=== PATIENT | female | born 1950 | race Two or more races ===

== ENCOUNTER 2024-11-24 07:57 | Emergency (ER) | payer MEDICARE, SELFPAY ==
[2024-11-24 08:14] VITALS: BP 149/84; PULSE 70; RESP 18; TEMP 37; O2SAT 97; BMI 27.3
--- NOTE | 2024-11-24 08:18 | XR_ITS ---
Examination: CT brain head without contrast. 2-D sagittal coronal reconstructions Date and time of exam:November 24, 2024 0831 hours INDICATIONS: Sudden onset head pain beginning 3 days ago CTDI: vol (mGy):49.5 DLP: (mGycm):915 Technique: Multiple CT axial sections of the brain have been obtained, 5 mm slice thickness. Contrast has not been administered. 2-D sagittal, coronal reconstructions have been obtained Low dose protocols were performed. One or more of the following dose reduction techniques were used; automated exposure control, adjustment of the mA and/or KV according to patient size, use of iterative reconstruction technique. Findings: No significant ventricular enlargement. Intra-axial or extra-axial hemorrhage density is not seen. No mass effect or midline shift Basal cisterns are not remarkable. Fourth ventricle is midline. Cranial vault intact. Impression: Negative for acute hemorrhage, mass effect or midline shift If signs and symptoms persist, consider elective brain MRI follow-up
--- NOTE | 2024-11-24 08:18 | XR_ITS ---
Examination: CT cervical spine without contrast 2-D sagittal reconstructions 2-D coronal reconstructions 3-D reconstructions. Exam date and time:12/25/2024 0831 hours INDICATIONS: Sudden onset neck pain beginning 3 days ago CTDI:vol (mGy) 8.2 DLP: (mGycm) 151 Technique: Multiple 2 mm axial sections of the cervical spine have been obtained. The coronal and sagittal reconstructions have been obtained. 3-D reconstructions have been obtained. Low dose protocols were performed. One or more of the following dose reduction techniques were used; automated exposure control, adjustment of the mA and/or KV according to patient size, use of iterative reconstruction technique. Findings: Axial sections demonstrate intact base of the skull. C1 exhibit satisfactory relationship to the odontoid. No acute cervical vertebral body fracture seen. Alignment posterior spinous processes satisfactory. Impression: No acute cervical fracture. Consider elective MRI cervical spine without contrast follow-up
[2024-11-24] MEDS: ACETAMINOPHEN 500 MG TABLET 1000 MG PO (08:26)
[2024-11-24] MEDS: DIAZEPAM 5 MG TABLET PO (08:42)
--- NOTE | 2024-11-24 10:52 | EDNOTE_ITS ---
<Statement entered by Jasmina Rai MD - 11/25/24 16:12> As co-signing physician, I was present and available for consult prn. I concur with the plan and care as documented by the midlevel provider. ED Neck Injury Pain RME/HPI General Chief Complaint: Neck Pain/Injury Stated Complaint: NECK PAIN RAD TO SHOULDERS/HEAD Time Seen by Provider: 11/24/24 08:14 Arrival date/time: 11/24/24 07:57 74-year-old female presents to the emergency department today complains of head and neck pain upper back and shoulder pain patient reports her pain is worse with movement of her neck and worse with palpation Limitations: no limitations Related Data Home Medications ?Medication ?Instructions ?Recorded ?Confirmed aspirin 81 mg tablet,delayed 81 mg PO QDAY ##0 5 05/24/18 release (Aspir-) enalapril maleate 20 mg tablet 20 mg PO BID #0 tabs 05/24/18 (Vasotec) glipizide 10 mg tablet 10 mg PO BIDAC #0 tabs 11/1005/24/18 hydrochlorothiazide 25 mg tablet 25 mg PO QAM #0 tabs 11/10/14 05/24/18 carvedilol 6.25 mg tablet (Coreg) 6.25 mg PO BID #0 ta bs 07/23/16 05/24/18 metformin 1,000 mg tablet 1,000 mg PO BID #0 tabs 11/0 12/0305/24/18 (Glucophage) sitagliptin phosphate 100 mg 100 mg PO QDAY #0 tabs 05/24/18 tablet (Januvia) Previous Rx's ?Medication ?Instructions ?Recorded cyclobenzaprine 10 mg tablet 10 mg PO TID PRN muscle s pasm 10 11/24/24 days #30 tab-caps hydrocodone 5 mg-acetaminophen 325 1 tab PO BID PRN pa in #10 tabs 11/24/24 mg tablet ibuprofen 600 mg tablet 600 mg PO Q6H #30 tabs 11/24 Allergies Allergy/AdvReac Type Severity Reaction Status Date / Time No Known Allergies Allergy Verified 05/24/18 06:17 Review of Systems Review of Systems Systems Reviewed: All systems reviewed, normal except as documented Constitutional Constitutional: Reports system reviewed and no additional complaints, except as documented, Denies fever(s) and Denies headache(s) Eyes Eyes: Reports system reviewed and no additional complaints, except as documented and Denies blurry vision ENT Ears, Nose, Mouth, and Throat: Reports system reviewed and no additional complaints, except as documented, Denies headache(s), Denies nasal congestion, Denies nasal discharge and Reports neck pain Cardiovascular Cardiovascular: Reports system reviewed and no additional complaints, except as documented, Denies chest pain and Denies dyspnea Respiratory Respiratory: Reports system reviewed and no additional complaints, except as documented, Denies chest congestion, Denies cough and Denies dyspnea Gastrointestinal Gastrointestinal: Reports system reviewed and no additional complaints, except as documented and Denies abdominal pain Musculoskeletal Musculoskeletal: Reports system reviewed and no additional complaints, except as documented, Denies deformity, Reports neck pain and Reports other (Bilateral shoulder pain paraspinal tenderness) Integumentary/Breasts Skin/Breast: Reports system reviewed and no additional complaints, except as documented and Denies rash Neurologic Neurologic: Reports system reviewed and no additional complaints, except as documented, Reports as per HPI and Denies headache(s) Past Medical History Past Medical History NEUROLOGIC: Negative Neurological Disorders or Seizures CARDIAC: Positive Cardiac Disorders, Hypercholesterolemia and Hypertension; Negative Congestive Heart Failure RESPIRATORY: Negative Chronic Obstructive Pulmonary Disease (COPD) GASTROINTESTINAL: Negative Gastrointestinal Disorders GENITOURINARY: Negative Genitourinary Disorders or Renal Disease MUSCULOSKELETAL: Negative Musculoskeletal Disorders ENT: Positive Cataracts (OS WITH IOL) ENDOCRINE: Positive Endocrine Disorders and Diabetes Mellitus Type 2; Negative Diabetes Mellitus Type 1 HEMATOLOGIC: Negative Blood Disorders PSYCHO/SOCIAL: Positive Anxiety OTHER HISTORY: Negative Autoimmune Disease or Anesthesia Reactions Surgical History SURGICAL: Positive Eye Surgery (BILAT PTERYGIUM); Negative Abdominal Surgery, Nephrectomy, Joint Replacement, Neurologic Surgery or Mastectomy Social History SMOKING STATUS: Never smoker ED Exam General Limitations: Present no limitations General appearance: Present alert and in no apparent distress Head Head exam: Present atraumatic, normocephalic and normal inspection Eye Eye exam: Present normal appearance, PERRL and EOMI; Absent conjunctival injection ENT ENT exam: Present normal exam, normal oropharynx and mucous membranes moist Neck Neck exam: Present normal inspection, full ROM and trachea midline Chest Chest inspection: Present normal inspection and symmetric chest wall rise Respiratory Respiratory exam: Present normal lung sounds bilaterally; Absent respiratory distress Cardiovascular Cardiovascular exam: Present regular rate, normal rhythm and normal heart sounds; Absent bradycardia or tachycardia Abdominal Exam Abdominal exam: Present soft and normal bowel sounds; Absent distention, tenderness, guarding, rebound or rigidity Extremities Exam Extremities exam: Present normal inspection and full ROM Back Exam Back exam: Present normal inspection, full ROM and tenderness Back 1 view image: 2 1. Neck pain muscle pain Neurological Exam Neurological exam: Present alert, oriented X3, CN II-XII intact, normal gait and reflexes normal; Absent motor sensory deficit Psychiatric Psychiatric exam: Present normal affect and normal mood Skin Skin exam: Present warm, dry, intact and normal color Course Quality Measures none Orders Category Date Time Status CT cervical spine wo con Stat Exams 11/24/24 08:[address] head/brain wo con Stat Exams 11/24/24 08:18 Completed Acetaminophen Tab [Tylenol ES Tab] Med 11/24/24 08:18 Discontinued 1,000 mg PO X1 ONE Diazepam [Valium] Med 11/24/24 08:18 Discontinued 5 mg PO X1 ONE Ketorolac Inj [Toradol Inj] Med 11/24/24 10:55 Discontinued 30 mg IM X1 ONE Vital Signs Vital signs: Vital Signs Temperature 98.6 F 11/24/24 08:14 Pulse Rate 70 11/24/24 08:14 Respiratory Rate 18 11/24/24 08:14 Blood Pressure 149/84 H 11/24/24 08:14 Pulse Oximetry (%) 97 11/24/24 08:14 Oxygen Delivery Method Room Air 11/24/24 08:14 O2 saturation 97% room air within normal limits Neck Pain MDM Narrative MDM Narrative:: 74-year-old female presents to the emergency department today complains of head and neck pain upper back and shoulder pain patient reports her pain is worse with movement of her neck and worse with palpation Patient reports no recent injuries patient ports no chest pain or shortness of breath no headache dizziness weakness Symptoms are highly consistent with muscle pain Imaging of the cervical spine as well as CT of the head obtained no acute emergent findings noted Patient medicated here which did improve her symptoms but did not completely relieve them Patient will be treated with course of pain medication and muscle relaxers Patient data External records reviewed:: [facility] previous records Clinical information provided by:: patient Social determinants that could affect healthcare access:: none Patient has the following chronic illnesses:: See history How is presenting disease/condition affected by chronic disease/condition?: u neffected by Evaluation data The following diagnostics were reviewed and interpreted by me:: radiology exam(s) Lab and/or radiology exams considered but not ordered:: Radiology obtain Interpretation Summary: Reviewed by me Medications / Prescriptions Medications or Prescriptions considered but not ordered:: Given Medication administrations:: Medication Administration History Discontinued Medications Acetaminophen (Acetaminophen 500 Mg Tablet) 1,000 mg PO X1 ONE Stop: 11/24/24 08:19 Last Admin: 11/24/24 08:26 Dose: 1,000 mg Documented By: NUBIA Diazepam (Diazepam 5 Mg Tablet) 5 mg PO X1 ONE Stop: 11/24/24 08:19 Last Admin: 11/24/24 08:42 Dose: 5 mg Documented By: NUBIA Ketorolac Tromethamine (Ketorolac Inj 30 Mg/Ml Vial) 30 mg IM X1 ONE Stop: 11/24/24 10:56 Last Admin: 11/24/24 11:19 Dose: 30 mg Documented By: AMY Comments: SCANNER NOT WORKING Given Consultations Consultation(s) initiated? (list below): No Diagnosis Neck Differential Diagnosis: disc disorder of cervical region, fracture of cervical spine without lesion of spinal cord and strain of neck muscle Most likely diagnosis given after review of the tests above:: Neck pain, muscle spasm Admission Indicated Admission indicated?: not indicated Admission Request Was there a request for admission?: No Disposition Plan Disposition Plan: Discharge Discharge Attestation Discharge Attestation: The patient and all family members were given an opportunity to ask questions and understood the discharge instructions. Discharge instructions specifically effects, indications for sooner follow up or return to the emergency department, and the expected course of current diagnosis. Patient condition: Stable Discharge Plan Plan Patient Disposition: HOME (Self Care) Disposition Comment: Stable Prescriptions/Referrals Prescriptions/Med Rec: New cyclobenzaprine 10 mg tablet 10 mg PO TID PRN (Reason: muscle spasm) 10 Days Qty: 30 0RF hydrocodone-acetaminophen 5-325 mg tablet 1 tab PO BID MDD 10 PRN (Reason: pain) Qty: 10 0RF ibuprofen 600 mg tablet 600 mg PO Q6H Qty: 30 0RF No Action enalapril maleate [Vasotec] 20 MG tablet 20 mg PO BID Qty: 0 glipizide 10 MG tablet 10 mg PO BIDAC Qty: 0 aspirin [Aspir-81] 81 mg Tablet,Delayed Release (Dr/Ec) 81 mg PO QDAY Qty: 0 hydrochlorothiazide 25 MG tablet 25 mg PO QAM Qty: 0 carvedilol [Coreg] 6.25 MG tablet 6.25 mg PO BID Qty: 0 metformin [Glucophage] 1,000 MG tablet 1,000 mg PO BID Qty: 0 sitagliptin phosphate [Januvia] 100 MG tablet 100 mg PO QDAY Qty: 0 Referrals: No Primary/Family,Physician [Primary Care Provider] - 11/27/24 Problem List Clinical Impression: Muscle spasms of neck Patient/Caregiver Discharge Instructions Education Materials: ED Muscle Spasm Additional Instructions: Please follow up with your primary care doctor in the next 24-48hrs for any worsening symptoms return here immediately Print Language: Burmese Stand Alone Forms: Rebecca Award Info., Patient Portal Info Letter PA/AVIATION PROGRAM MANAGER Supervising Physician PA/AVIATION PROGRAM MANAGER Supervising Physician: Dr. RAI
[2024-11-24 10:54] VITALS: BP 129/84; PULSE 67; RESP 18; TEMP 36.7; O2SAT 98
[2024-11-24] MEDS: KETOROLAC INJ 30 MG/ML VIAL IM (11:19)
== END 2024-11-24 11:39 | disposition home or self-care (01) ==
PROVIDERS: Emergency Provider Emergency Medicine
DX: M62.838 Other muscle spasm (principal); R51.9 Headache, unspecified
CPT/HCPCS: 70450; 72125; 96372; 99284; J1885; A9270

== ENCOUNTER → 2025-01-29 | Outpatient (CLI) | payer MEDICARE, SELFPAY ==
--- NOTE | 2025-01-29 12:00 | XR_ITS ---
Examination: Bone densitometry Date and time of exam:January 29, 2025 1215 hours INDICATIONS: Menopause age 45 diabetic, personal history osteopenia Technique: Lumbar spine and hip total bone mineralization values of an calculated. Peak reference and age match control results have been displayed. Findings: Lumbar spine total bone mineralization is0.854 gm/cm2. This is 1.8 standard deviations below peak reference. This is 0.6 standard deviations above age-matched controls. Hip total bone mineralization is 0.868 gm/cm2 This is 0.7 standard deviations below peak reference. This is 1.1 standard deviations above age-matched controls Impression: There is osteopenia based on lumbar spine measurements. There is normal mineralization based on hip measurements Lumbar mineralization is decreased 3.1% compared with January 28, 2023 Hip mineralization is increased 5.6% compared with January 28, 2023
== END | disposition home or self-care (01) ==
LOC: CDIM 11:17
PROVIDERS: Referring Provider Family Medicine; Visit Provider Family Medicine
DX: Z13.820 Encounter for screening for osteoporosis (principal); M85.88 Other specified disorders of bone density and structure, other site
CPT/HCPCS: 77080

== ENCOUNTER 2025-09-08 20:20 | Emergency (ER) | payer MEDICARE, SELFPAY ==
[2025-09-08 20:30] VITALS: BP 167/90; PULSE 69; RESP 20; TEMP 36.6; O2SAT 97
[2025-09-08] MEDS: FAMOTIDINE 20 MG TABLET 40 MG PO (20:39)
[2025-09-08 21:49] VITALS: BP 176/99; PULSE 66
[2025-09-08] MEDS: EPINEPHrine INJ 1 MG/ML AMP 0.3 MG IM (21:49)
[2025-09-08 21:55] VITALS: BP 176/99; PULSE 62; RESP 22; TEMP 36.8; O2SAT 99
--- NOTE | 2025-09-08 23:06 | PD.EDALLER ---
ED Allergic Reaction RME/HPI General Chief complaint: Dental/Oral/Throat Stated complaint: SWELLING TO FACE, DIFFICULTY BREATHING X3 DAYS Time Seen by Provider: 09/08/25 20:33 Arrival date/time: 09/08/25 20:20 This is a case of 74-year-old female with history of hypertension came in in the emergency room due to facial swelling and redness 2-day history of present illness started 3 days prior to arrival in the emergency room patient have on and off generalized rashes which is resolved by the Benadryl patient is fine until this afternoon daughter noted that the patient have rashes again now with facial swelling on the lip upper and mild shortness of breath daughter gave Benadryl which resolved the rashes but still with facial swelling on the upper lip thus decided to bring patient here in the emergency room Limitations: no limitations Related Data Home Medications ?Medication ?Instructions ?Recorded ?Confirmed aspirin 81 mg tablet,delayed 81 mg PO QDAY ##0 11/10/14 05/24/18 release (Aspir-) enalapril maleate 20 mg tablet 20 mg PO BID #0 tabs 11/10/14 05/24/18 (Vasotec) glipizide 10 mg tablet 10 mg PO BIDAC #0 tabs 11/10/14 05/24/18 hydrochlorothiazide 25 mg tablet 25 mg PO QAM #0 tabs 11/10/14 05/24/18 carvedilol 6.25 mg tablet (Coreg) 6.25 mg PO BID #0 tabs 07/23/16 05/24/18 metformin 1,000 mg tablet 1,000 mg PO BID #0 tabs 07/23/16 05/24/18 (Glucophage) sitagliptin phosphate 100 mg 100 mg PO QDAY #0 tabs 07/23/16 05/24/18 tablet (Januvia) Previous Rx's ?Medication ?Instructions ?Recorded hydrocodone 5 mg-acetaminophen 325 1 tab PO BID PRN pain #10 tabs 11/24/24 mg tablet ibuprofen 600 mg tablet 600 mg PO Q6H #30 tabs 11/24/24 diphenhydramine HCl 25 mg capsule 25 mg PO TID PRN allergic reaction 09/08/25 (Benadryl) #20 caps famotidine 20 mg tablet (Pepcid) 20 mg PO BID #10 tabs 09/08/25 prednisone 20 mg tablet 20 mg PO QDAY 5 days #5 tabs 09/08/25 Allergies Allergy/AdvReac Type Severity Reaction Status Date / Time No Known Allergies Allergy Verified 05/24/18 06:17 Review of Systems Review of Systems Systems Reviewed: All systems reviewed, normal except as documented Constitutional Constitutional: Reports system reviewed and no additional complaints, except as documented and Reports as per HPI ENT Ears, Nose, Mouth, and Throat: Reports system reviewed and no additional complaints, except as documented and Reports as per HPI Cardiovascular Cardiovascular: Reports system reviewed and no additional complaints, except as documented Respiratory Respiratory: Reports system reviewed and no additional complaints, except as documented and Reports as per HPI Neurologic Neurologic: Reports system reviewed and no additional complaints, except as documented and Reports as per HPI Past Medical History Past Medical History NEUROLOGIC: Negative Neurological Disorders or Seizures CARDIAC: Positive Cardiac Disorders, Hypercholesterolemia and Hypertension; Negative Congestive Heart Failure RESPIRATORY: Negative Chronic Obstructive Pulmonary Disease (COPD) GASTROINTESTINAL: Negative Gastrointestinal Disorders GENITOURINARY: Negative Genitourinary Disorders or Renal Disease MUSCULOSKELETAL: Negative Musculoskeletal Disorders ENT: Positive Cataracts ENDOCRINE: Positive Endocrine Disorders and Diabetes Mellitus Type 2; Negative Diabetes Mellitus Type 1 HEMATOLOGIC: Negative Blood Disorders PSYCHO/SOCIAL: Positive Anxiety OTHER HISTORY: Negative Autoimmune Disease or Anesthesia Reactions Surgical History SURGICAL: Positive Eye Surgery; Negative Abdominal Surgery, Nephrectomy, Joint Replacement, Neurologic Surgery or Mastectomy Social History SMOKING STATUS: Never smoker ED Exam General Limitations: Present no limitations General appearance: Present alert, in no apparent distress and other (Patient is awake alert oriented not in distress nontoxic looking well-hydrated well-nourished) Head Head exam: Present atraumatic, normocephalic and normal inspection Eye Eye exam: Present normal appearance, PERRL and EOMI ENT ENT exam: Present normal exam, normal oropharynx, mucous membranes moist and other (Normal HEENT exam no drooling of saliva no facial swelling patient can speak full sentences mild swelling on the upper lip no abscess noted) Neck Neck exam: Present normal inspection, full ROM and trachea midline; Absent tenderness, meningismus, lymphadenopathy or thyromegaly Chest Chest inspection: Present normal inspection and symmetric chest wall rise; Absent tenderness Respiratory Respiratory exam: Present normal lung sounds bilaterally and other (No crackles no rales noted.); Absent respiratory distress, wheezes, stridor, accessory muscle use or prolonged expiratory phase Cardiovascular Cardiovascular exam: Present regular rate, normal rhythm and normal heart sounds; Absent bradycardia, tachycardia, irregular rhythm, systolic murmur or diastolic murmur Abdominal Exam Abdominal exam: Present soft and normal bowel sounds; Absent distention, tenderness, guarding, rebound, rigidity, diminished bowel sounds or hyperactive bowel sounds Extremities Exam Extremities exam: Present normal inspection and full ROM Back Exam Back exam: Present normal inspection and full ROM Neurological Exam Neurological exam: Present alert, oriented X3, CN II-XII intact, normal gait and reflexes normal; Absent motor sensory deficit Psychiatric Psychiatric exam: Present normal affect and normal mood Skin Skin exam: Present warm, dry, intact and normal color; Absent rash Course Quality Measures none Orders Category Date Time Status DiphenhydrAMINE INJ [Benadryl Inj] Med 09/08/25 20:34 Discontinued 25 mg IM X1 ONE EPINEPHrine Inj [Adrenalin Inj] Med 09/08/25 21:33 Discontinued 0.3 mg IM X1 ONE Famotidine [Pepcid] Med 09/08/25 20:34 Discontinued 40 mg PO X1 ONE dexAMETHasone INJ [Decadron Inj] Med 09/08/25 20:34 Discontinued 10 mg IM X1 ONE Vital Signs Vital signs: Vital Signs Temperature 97.9 F 09/08/25 20:30 Pulse Rate 69 09/08/25 20:30 Respiratory Rate 20 09/08/25 20:30 Blood Pressure 167/90 H 09/08/25 20:30 Pulse Oximetry (%) 97 09/08/25 20:30 Oxygen Delivery Method Room Air 09/08/25 20:30 Oxygen saturation is 97% in room Allergic Reaction MDM Narrative MDM Narrative:: This is a case of 74-year-old female with history of hypertension came in in the emergency room due to facial swelling and redness 2-day history of present illness started 3 days prior to arrival in the emergency room patient have on and off generalized rashes which is resolved by the Benadryl patient is fine until this afternoon daughter noted that the patient have rashes again now with facial swelling on the lip upper and mild shortness of breath daughter gave Benadryl which resolved the rashes but still with facial swelling on the upper lip thus decided to bring patient here in the emergency room physical examination patient is awake alert oriented not in distress nontoxic looking lungs sound is clear no wheezing no crackles no rales no retraction no stridor there is no rashes noted patient noted to have a mild swelling of the upper lip and redness on both cheeks suggestive of acute allergic reaction no signs and symptoms of anaphylaxis no angioedema HEENT exam is normal no throat swelling tonsils were normal no drooling of saliva patient can speak full sentences patient was given initially again with Benadryl dexamethasone and Pepcid patient was reassessed after 1 hour and noted that the redness on the face were resolved but still with swelling on the upper lip thus decided to give epinephrine 0.3 mg IM after 1 hour patient was reassessed swelling subsided as patient will be discharged home in stable condition daughter is aware that need need to see a older adult social work specialist for allergy test for any recurrence persistent worsening symptoms return precaution in the ER is advised Patient was discharged with comfortable condition walking with stable gait. Patient verbalized no further complains explained diagnosis and answered patient question. Patient is comfortable with the proposed management plan including the need to follow up with his/her primary care physician and any specialist if applicable Discussed patient for any urgent condition or worsening sx, He/She needed to go to emergency room immediately or call 911. Patient acknowledge the responsibility to follow up as instructed and to monitor her/his symptoms. For any persistence of the symptoms for more than 3-5 days return precaution advised. Discussed the result of the test and was given printed discharge instruction Patient data External records reviewed:: [facility] previous records Clinical information provided by:: patient Social determinants that could affect healthcare access:: none Patient has the following chronic illnesses:: None How is presenting disease/condition affected by chronic disease/condition?: no chronic disease Evaluation data The following diagnostics were reviewed and interpreted by me:: other (specify) (None) Lab and/or radiology exams considered but not ordered:: None Interpretation Summary: None Medications / Prescriptions Medications or Prescriptions considered but not ordered:: Given Medication administrations:: Medication Administration History Discontinued Medications Dexamethasone Sodium Phosphate (Dexamethasone Sod Phos Inj 10 Mg/Ml Vial) 10 mg IM X1 ONE Stop: 09/08/25 20:35 Last Admin: 09/08/25 20:41 Dose: 10 mg Documented By: SUDHEER Diphenhydramine HCl (Diphenhydramine Inj 50 Mg/Ml Vial) 25 mg IM X1 ONE Stop: 09/08/25 20:35 Last Admin: 09/08/25 20:40 Dose: 25 mg Documented By: SUDHEER Epinephrine HCl (Epinephrine Inj 1 Mg/Ml Amp) 0.3 mg IM X1 ONE Stop: 09/08/25 21:34 Last Admin: 09/08/25 21:49 Dose: 0.3 mg Documented By: BR Famotidine (Famotidine 20 Mg Tablet) 40 mg PO X1 ONE Stop: 09/08/25 20:35 Last Admin: 09/08/25 20:39 Dose: 40 mg Documented By: MF Given Consultations Consultation(s) initiated? (list below): No Diagnosis Differential Diagnosis allergic reaction: allergic reaction, angioedema, contact dermatitis, adverse reaction to drug and urticaria Most likely diagnosis given after review of the tests above:: Acute allergic reaction Admission Indicated Admission indicated?: not indicated Explain why admission is indicated or not indicated:: Not indicated Admission Request Was there a request for admission?: No Disposition Plan Disposition Plan: Discharge Discharge Attestation Discharge Attestation: The patient and all family members were given an opportunity to ask questions and understood the discharge instructions. Discharge instructions specifically effects, indications for sooner follow up or return to the emergency department, and the expected course of current diagnosis. Patient condition: Stable Discharge Plan Plan Patient Disposition: HOME (Self Care) Patient condition on transfer: Stable Prescriptions/Referrals Prescriptions/Med Rec: New prednisone 20 mg tablet 20 mg PO QDAY 5 Days Qty: 5 0RF Rx Instructions: start tomorrow famotidine [Pepcid] 20 mg tablet 20 mg PO BID Qty: 10 0RF diphenhydramine HCl [Benadryl] 25 mg capsule 25 mg PO TID PRN (Reason: allergic reaction) Qty: 20 0RF No Action enalapril maleate [Vasotec] 20 MG tablet 20 mg PO BID Qty: 0 glipizide 10 MG tablet 10 mg PO BIDAC Qty: 0 aspirin [Aspir-81] 81 mg Tablet,Delayed Release (Dr/Ec) 81 mg PO QDAY Qty: 0 hydrochlorothiazide 25 MG tablet 25 mg PO QAM Qty: 0 carvedilol [Coreg] 6.25 MG tablet 6.25 mg PO BID Qty: 0 metformin [Glucophage] 1,000 MG tablet 1,000 mg PO BID Qty: 0 sitagliptin phosphate [Januvia] 100 MG tablet 100 mg PO QDAY Qty: 0 hydrocodone-acetaminophen 5-325 mg tablet 1 tab PO BID MDD 10 PRN (Reason: pain) Qty: 10 0RF ibuprofen 600 mg tablet 600 mg PO Q6H Qty: 30 0RF Problem List Clinical Impression: Acute allergic reaction Patient/Caregiver Discharge Instructions Education Materials: ED Medicine Reaction: Allergic Additional Instructions: Follow-up with your primary care physician in 2 days for reevaluation and to be referred to older adult social work specialist for allergy testing recurrence persistent worsening symptoms or any emergent concern call 911 or go to the nearest emergency room take your medication as directed keep hydrated Print Language: French Stand Alone Forms: Rebecca Award Info., Patient Portal Info Letter PA/RESEARCH RN SPEC Supervising Physician PA/RESEARCH RN SPEC Supervising Physician: Dr. Guardado
[2025-09-08 23:55] VITALS: BP 134/89; PULSE 69; RESP 19; O2SAT 99
== END 2025-09-09 04:52 | disposition home or self-care (01) ==
LOC: SERX 23:22
PROVIDERS: Emergency Provider Emergency Medicine
DX: R22.0 Localized swelling, mass and lump, head (principal); R21 Rash and other nonspecific skin eruption
CPT/HCPCS: 96372; 99282; J0166; J1100; J1200; A9270